=== PATIENT | female | born 2000 | race Caucasian/White ===

== ENCOUNTER 2023-01-30 08:24 | Emergency (ER) | payer MEDICAID ==
[~2023-01-30] VITALS: Ht 160 cm; Wt 64.0 kg
[2023-01-30 08:46] VITALS: BP 120/83
[2023-01-30] MEDS ORDERED: ACETAMINOPHEN 325MG TABLET PO STA (13:04)
[2023-01-30 13:19] LABS: CLARITY URINE CLEAR (CLEAR); COLOR URINE YELLOW (YELLOW); KETONES URINE NEGATIVE (NEGATIVE); LEUKOCYTE ESTERASE URINE NEGATIVE (NEGATIVE); NITRITE URINE NEGATIVE (NEGATIVE); OCCULT BLOOD URINE NEGATIVE (NEGATIVE); PH URINE 5.5 (4.5-8.0); PROTEIN URINE NEGATIVE (NEGATIVE); SPECIFIC GRAVITY URINE 1.018 (1.005-1.030); UROBILINOGEN URINE 0.2 E.U./dL (0.2-1.0)
[2023-01-30 14:45] LABS: BASOPHILS % 0.4 % (0.0-2.0); EOSINOPHILS % 2.4 % (0.0-5.0); HEMATOCRIT. 39.9 % (36.0-48.0); HEMOGLOBIN. 13.4 g/dL (12.0-16.0); MEAN CORPUSCULAR VOLUME 80.4 fL (81.0-99.0); MEAN PLATELET VOLUME 8.5 fl (7.4-10.4); MONOCYTES % 6.9 % (2.0-8.0); NEUTROPHILS % 52.3 % (40.0-76.0); PLATELET 307 x1000/uL (130-400); RED BLOOD CELL COUNT 4.96 mill/uL (4.2-5.4); RED CELL DISTRIBUTION WIDTH 14.2 % (11.6-14.6)
[2023-01-30 14:52] LABS: CHLORIDE 104 mEq/L (98-107)
[2023-01-30] MEDS ORDERED: TRAM50TA3 MT (15:27)
[2023-01-30] MEDS ORDERED: FAMO20TA8 MT (15:27)
[2023-01-30] MEDS ORDERED: NAPR-681 PO (15:27)
== END 2023-01-30 16:30 | disposition home or self-care (01) ==
LOC: ER 09:13
DX: K29.70 Gastritis, unspecified, without bleeding (principal)
CPT/HCPCS: 36415; 80053; 81003; 81025; 85025; 99283

== ENCOUNTER 2023-04-23 08:17 | Emergency (ER) | payer MEDICAID ==
[~2023-04-23] VITALS: Ht 152.4 cm; Wt 70.0 kg
[~2023-04-23 08:17] MED LIST: FAMO20TA8 MT; NAPR-681 PO; TRAM50TA3 MT
[2023-04-23 08:41] VITALS: TEMP 98
[2023-04-23 09:15] LABS: CHLORIDE 106 mEq/L (98-107)
[2023-04-23 09:18] LABS: BASOPHILS % 0.5 % (0.0-2.0); HEMATOCRIT. 38.6 % (36.0-48.0); LYMPHOCYTES % 30.6 % (20.0-50.0); MEAN CORPUSCULAR HEMOGLOBIN 27.3 pg (28.0-32.0); MEAN CORPUSCULAR VOLUME 81.3 fL (81.0-99.0); MEAN PLATELET VOLUME 8.7 fl (7.4-10.4); MONOCYTES % 8.1 % (2.0-8.0); NEUTROPHILS % 55.8 % (40.0-76.0); PLATELET 288 x1000/uL (130-400); RED BLOOD CELL COUNT 4.75 mill/uL (4.2-5.4); RED CELL DISTRIBUTION WIDTH 14.1 % (11.6-14.6)
[2023-04-23 10:10] LABS: CLARITY URINE CLEAR (CLEAR); COLOR URINE YELLOW (YELLOW); KETONES URINE NEGATIVE (NEGATIVE); LEUKOCYTE ESTERASE URINE NEGATIVE (NEGATIVE); NITRITE URINE NEGATIVE (NEGATIVE); OCCULT BLOOD URINE NEGATIVE (NEGATIVE); PH URINE 5.5 (4.5-8.0); PROTEIN URINE NEGATIVE (NEGATIVE); SPECIFIC GRAVITY URINE 1.025 (1.005-1.030)
[2023-04-23] MEDS ORDERED: ONDANSETRON HCL 4MG/2ML INJ IV NR (10:45)
[2023-04-23] MEDS ORDERED: KETOROLAC 30MG/ML VIAL IV NR (11:00)
[2023-04-23] MEDS ORDERED: ONDA4TAB11 PO (14:03)
[2023-04-23] MEDS ORDERED: IBUP-2029 MT (14:03)
[2023-04-23 14:30] VITALS: BP 95/57; PULSE 69; RESP 16
== END 2023-04-23 15:08 | disposition home or self-care (01) ==
LOC: ER 08:31
DX: K80.50 Calculus of bile duct without cholangitis or cholecystitis without obstruction (principal); Z98.890 Other specified postprocedural states
CPT/HCPCS: 36415; 76705; 80053; 81003; 81025; 85025; 96374; 96375; 99284; J1885; J2405; Z7610